=== PATIENT | female | born 1975 | race African-American/Black ===

== ENCOUNTER 2019-03-02 12:53 | Day surgery (SDC) | payer OTHER ==
[2019-03-02] MEDS ORDERED: LIDOCAINE 4% SOLUTION 50 ML BTL (16:08)
[2019-03-02] MEDS ORDERED: MIDAZOLAM 1 MG/ML 2 ML INJ ×2 (17:00)
[2019-03-02] MEDS ORDERED: FENTAnyl 50 MCG/ML VIAL (17:00)
== END 2019-03-02 17:44 | disposition home or self-care (01) ==
LOC: GIL 12:53
DX: K29.50 Unspecified chronic gastritis without bleeding (principal); K20.8 Other esophagitis
CPT/HCPCS: 43239; 88305; 88312